=== PATIENT | male | born 1950 | race Caucasian/White ===

== ENCOUNTER 2020-06-24 14:07 | Emergency (ER) | payer OTHER, MEDICAID ==
[~2020-06-24] VITALS: Ht 177.8 cm; Wt 95.3 kg
[2020-06-24 15:02] LABS: BASOPHILS % 0.3 % (0.0-2.0); EOSINOPHILS % 0.4 % (0.0-5.0); HEMATOCRIT. 45.6 % (42.0-52.0); HEMOGLOBIN. 15.6 g/dL (14.0-18.0); LYMPHOCYTES % 14.2 % (20.0-50.0); MEAN CORPUSCULAR VOLUME 87.7 fL (80.0-94.0); MEAN PLATELET VOLUME 7.8 fl (7.4-10.4); MONOCYTES % 9.6 % (2.0-8.0); NEUTROPHILS % 75.5 % (40.0-76.0); PLATELET 429 x1000/uL (130-400); RED CELL DISTRIBUTION WIDTH 12.7 % (11.6-14.6)
[2020-06-24 15:05] LABS: CHLORIDE 96 mEq/L (98-107)
[2020-06-24 15:10] LABS: D-DIMER 1.02 mg/L FEU (<0.50)
[2020-06-24 15:14] LABS: CREATINE KINASE 40 IU/L (39-308)
[2020-06-24] MEDS ORDERED: DEXAMETHASONE 4MG/ML 1ML VIAL IV ONE (15:45)
[2020-06-24] MEDS ORDERED: SODIUM CHLORIDE 0.9% 1,000 ML IV ONE (15:45)
[2020-06-24 21:39] VITALS: BP 142/90
== END 2020-06-24 21:52 | disposition short-term general hospital (02) ==
LOC: ER 14:30 → EDBEDREQ 16:09 → ER 21:52 → CANBEDREQ 06-25 08:57
DX: U07.1 COVID-19 (principal); R09.02 Hypoxemia
CPT/HCPCS: 36415; 71045; 80053; 82550; 82728; 83605; 83615; 83880; 84484; 85025; 85379; 85384; 86140; 87040; 93005; 96361; 96374; 99285; C9803; J1100; J7030; U0003